=== PATIENT | male | born 1965 ===

== ENCOUNTER → 2018-05-24 | Outpatient (REF) | payer OTHER ==
[2018-05-24 18:38] LABS: IMMUNOGLOBULIN E 51.2 IU/ML (<100)
[2018-05-24 18:39] LABS: BASO # 0.1 10^3/uL (0.0-0.2); BASO % 1.1 % (0.0-1.0); EOS # 0.4 10^3/uL (0.0-0.50); EOS % 5.6 % (0.0-3.0); HEMATOCRIT 47.2 % (42.0-52.0); IMMATURE GRANULOCYTE % 2.9 % (0-3.0); LYMPH # 1.7 10^3/uL (1.5-4.5); MEAN CORPUSCULAR HEMOGLOBIN 31.1 pg (27.0-33.0); MEAN CORPUSCULAR HGB CONC 33.9 g/dl (32.0-36.5); MEAN CORPUSCULAR VOLUME 91.8 fl (80.0-96.0); MONO # 0.4 10^3/uL (0.0-0.8); MONO % 6.4 % (0.0-5.0); NEUTROPHILS # 3.8 10^3/uL (1.8-7.7); PLATELET COUNT, AUTOMATED 267 10^3/uL (150-450); RED BLOOD COUNT 5.14 10^6/uL (4.30-6.10); RED CELL DISTRIBUTION WIDTH 12.4 % (11.5-14.5); WHITE BLOOD COUNT 6.6 10^3/uL (4.0-10.0)
[2018-05-28 00:08] LABS: CHLAMYDIA PNEUMONIAE IgM <1:10 (Neg:<1:10)
== END ==
LOC: M LAB REF 16:59
DX: J45.909 Unspecified asthma, uncomplicated (principal)

== ENCOUNTER → 2021-01-31 | Outpatient (CLI) | payer OTHER ==
--- NOTE | 2021-02-01 03:43 | REPPI ---
INDICATION: J45.40 MODERATE PERSISTENT ASTHMA, UNCOMPLICATEDD COMPARISON: None. TECHNIQUE: PA and lateral. FINDINGS: The mediastinum and cardiac silhouette are normal. The lung english are clear and without acute consolidation, effusion, or pneumothorax. The skeletal structures are intact and normal. IMPRESSION: No acute cardiopulmonary process. <Electronically signed by Misael Macias > 02/01/21 2070
== END ==
LOC: M PLAIMG 15:32
PROVIDERS: ATTEND Internal Medicine Pulmonary Disease
DX: J45.40 Moderate persistent asthma, uncomplicated (principal)